=== PATIENT | female | born 1945 | race Two or more races ===

== ENCOUNTER → 2016-08-08 | Outpatient (CLI) | payer MEDICARE, OTHER ==
[2016-08-08 10:48] LABS: APPEARANCE,URINE SLIGHTLY-CLOUDY; BILIRUBIN,URINE NEGATIVE (NEGATIVE); GLUCOSE, URINE NEGATIVE (NEGATIVE); KETONES,URINE NEGATIVE (NEGATIVE); LEUKOCYTE ESTERASE,URINE LARGE (NEGATIVE); NITRITE,URINE NEGATIVE (NEGATIVE); PROTEIN,URINE NEGATIVE (NEGATIVE); URINE SPECIFIC GRAVITY 1.012
[2016-08-09 11:38] LABS: CREATININE URINE 113.2 mg/dL (Not Estab.); MICROALBUMIN URINE 31.8 ug/mL (Not Estab.)
== END ==
LOC: OD 08:55
PROVIDERS: ATTEND Internal Medicine Nephrology
DX: N28.9 Disorder of kidney and ureter, unspecified (principal); E11.9 Type 2 diabetes mellitus without complications
CPT/HCPCS: 36415; 81001; 82043; 82310; 82570

== ENCOUNTER → 2017-02-16 | Outpatient (CLI) | payer MEDICARE, OTHER ==
[2017-02-16 11:35] LABS: APPEARANCE,URINE CLEAR; BILIRUBIN,URINE NEGATIVE (NEGATIVE); GLUCOSE, URINE >=500 mg/dL (NEGATIVE); KETONES,URINE TRACE mg/dL (NEGATIVE); LEUKOCYTE ESTERASE,URINE LARGE (NEGATIVE); NITRITE,URINE NEGATIVE (NEGATIVE); PROTEIN,URINE NEGATIVE (NEGATIVE); URINE SPECIFIC GRAVITY 1.011
[2017-02-16 11:54] LABS: ANION GAP 17 (5-19); BLOOD UREA NITROGEN 25 mg/dL (7-20); CALCIUM 9.4 mg/dL (8.4-10.2); CARBON DIOXIDE 24 mmol/L (22-30); CHLORIDE 100 mmol/L (98-107); CREATININE RESULT 0.98 mg/dL (0.52-1.25); GLUCOSE 314 mg/dL (75-110); POTASSIUM 4.5 mmol/L (3.6-5.0); SODIUM 141.1 mmol/L (137-145)
== END ==
LOC: OD 10:22
PROVIDERS: ATTEND Internal Medicine Nephrology
DX: N28.9 Disorder of kidney and ureter, unspecified (principal)
CPT/HCPCS: 36415; 80048; 81001; 82043; 82570

== ENCOUNTER 2017-12-07 09:25 | Day surgery (SDC) | payer MEDICARE, OTHER ==
[~2017-12-07 09:25] MED LIST: PROPOFOL INJ 200 MG/20 ML VIAL IV ONE
[2017-12-07] MEDS ORDERED: PROPOFOL INJ 200 MG/20 ML VIAL IV ONE (10:45)
[2017-12-07 11:18] VITALS: BP 125/71
--- NOTE | 2017-12-07 12:01 | Operative Report ---
Operative Report DATE OF SURGERY: 12/07/17 Operative Report: The risks, benefits and alternatives of the procedure including the risks of bleeding, perforation requiring surgery are explained to the patient in detail and informed consent is obtained. Patient is brought back to the endoscopy suite and placed in the left, lateral decubital position. Timeout was called. Propofol medication is administered. A rectal examination is done which did not reveal any masses, tears or fissures. An Olympus videoscope was inserted into the patient's rectum. The scope was then carefully advanced all the way to the cecum. The cecum was identified by the usual anatomical landmarks including the ileocecal valve as well as the appendiceal office. Photodocumentation is obtained. The scope was then sequentially pulled back via the various segments of the colon including the ascending colon, hepatic flexure, transverse colon, splenic flexure, descending colon and finally into the rectosigmoid portions of the colon. Retroflexion maneuvers performed. The risks benefits and alternatives of the procedure explained to the patient in detail and informed consent is obtained.A GIF Olympus video scope was inserted into the patient's mouth and hypopharynx, the esophagus is identified intubated and insufflated, the scope was then advanced through the esophagus stomach and duodenum, retroflexion maneuver is done ,the esophagus stomach and first and second portions of the duodenum examined PREOPERATIVE DIAGNOSIS: Anemia. Blood in stool. Personal history of polyp POSTOPERATIVE DIAGNOSIS: Right sidecolon Information status post biopsy. Colon polyp descending colon removed via snare polypectomy and retrieved. Hepatic flexure polyp removal via snare polypectomy and retrieved. Internal hemorrhoids. Gastritis status post biopsy rule out Helicobacter pylori. Multiple gastric polyps status post biopsy did do appear to be a combination of fundic gland polyps and possibly inflammatory polyps. Hiatal hernia OPERATION: Colonoscopy with snare polypectomy. Colonoscopy with biopsy. EGD with biopsy SURGEON: TYRONE WEN ANESTHESIA: LMAC TISSUE REMOVED OR ALTERED: As noted above. COMPLICATIONS: None. ESTIMATED BLOOD LOSS: None. INTRAOPERATIVE FINDINGS: As noted above. PROCEDURE: Patient tolerated the procedure well. No immediate postprocedure complications are noted. Patient discharged in good condition. Discharge date 12/07/2017. Discharge diet: Regular. Discharge activity: Regular. 2-3 week follow-up to discuss findings. Patient is instructed to call the office or proceed to the emergency room should there be any further problems or questions. 3-5 year surveillance colonoscopy. We will wait on pathology.
== END 2017-12-07 10:45 | disposition home or self-care (01) ==
LOC: END 09:25
PROVIDERS: ATTEND Internal Medicine Gastroenterology
DX: D12.6 Benign neoplasm of colon, unspecified (principal); D12.3 Benign neoplasm of transverse colon; K64.8 Other hemorrhoids; K44.9 Diaphragmatic hernia without obstruction or gangrene; K29.50 Unspecified chronic gastritis without bleeding; K31.7 Polyp of stomach and duodenum; D64.9 Anemia, unspecified; K62.5 Hemorrhage of anus and rectum; Z86.010 Personal history of colon polyps; I10 Essential (primary) hypertension; E11.9 Type 2 diabetes mellitus without complications; Z79.899 Other long term (current) drug therapy; Z79.84 Long term (current) use of oral hypoglycemic drugs; Z88.1 Allergy status to other antibiotic agents
CPT/HCPCS: 43239; 45380; 45385; 82962; 88305 ×2; J2704; 813

== ENCOUNTER 2018-07-30 06:53 | Day surgery (SDC) | payer MEDICARE, OTHER ==
[2018-07-30] MEDS ORDERED: PROPOFOL INJ 200 MG/20 ML VIAL IV ONE (07:51)
[2018-07-30 09:28] VITALS: BP 135/43
--- NOTE | 2018-07-30 11:09 | Operative Report ---
Operative Report DATE OF SURGERY: 07/30/18 Operative Report: The risks benefits and alternatives of the procedure explained to the patient in detail and informed consent is obtained.A GIF Olympus video scope was inserted into the patient's mouth and hypopharynx, the esophagus is identified intubated and insufflated, the scope was then advanced through the esophagus stomach and duodenum, retroflexion maneuver is done ,the esophagus stomach and first and second portions of the duodenum examined. PREOPERATIVE DIAGNOSIS: Follow-up on gastric polyp POSTOPERATIVE DIAGNOSIS: Mixture of inflammatory and adenomatous polyp. The latter is now removed with snare polypectomy and retrieved with [employer] net. OPERATION: EGD with snare polypectomy SURGEON: TYRONE WEN ANESTHESIA: LMAC TISSUE REMOVED OR ALTERED: As noted above. COMPLICATIONS: None. ESTIMATED BLOOD LOSS: None. INTRAOPERATIVE FINDINGS: As noted above. PROCEDURE: Patient tolerated the procedure well. No immediate postprocedure comp occasions are noted. Patient discharged in good condition. Discharge date 07/30/2018. Discharge diet: Regular. Discharge activity: Regular. 2-3-week follow-up to discuss findings. Patient is instructed call the office or proceed to the emergency room should there be any further questions. Wait on the pathology.
== END 2018-07-30 09:40 | disposition home or self-care (01) ==
LOC: OROUT 06:53
PROVIDERS: ATTEND Internal Medicine Gastroenterology
DX: K31.7 Polyp of stomach and duodenum (principal); I10 Essential (primary) hypertension; M06.9 Rheumatoid arthritis, unspecified; E11.9 Type 2 diabetes mellitus without complications
CPT/HCPCS: 43251; 82962; 88342 ×2; 88305 ×2; J2704; 731